=== PATIENT | female | born 1955 | race Hispanic/Latino ===

== ENCOUNTER 2018-02-27 05:14 | Emergency (ER) | payer BC ==
[2018-02-27] MEDS ORDERED: NA CHLORIDE 0.9% 1,000 ML ONE (06:40)
[2018-02-27] MEDS ORDERED: ONDANSETRON 4 MG/2 ML VIAL ONE (06:40)
[2018-02-27 06:57] LABS: Absolute Lymphocytes (CBC) 0.5 K/uL (0.7-4.9); Absolute Monocytes 0.5 K/uL (0.1-1.3); Absolute Neutrophil 4.2 K/uL (1.8-8.0); Basophils % 0.3 % (0-1.3); Eosinophils % 0.2 % (0-4.4); Hematocrit 44.5 % (36.0-45.0); Lymphocytes % 10.2 % (15.3-44.8); MCH 32.5 pg (27.0-35.0); MPV 7.9 fL (7.6-11.3); Monocytes % 9.9 % (3.3-12.3); RBC Red Blood Cell Count 4.69 M/uL (3.86-4.86)
[2018-02-27 07:06] LABS: Bicarbonate 23 mEq/L (21-31); Glucose Level 128 mg/dL (65-120); Lipase 26 U/L (22-51); Potassium 3.2 mEq/L (3.6-5.0); Sodium Level 136 mEq/L (135-145)
[2018-02-27 07:13] LABS: ALT/SGPT 24 IU/L (10-60); AST/SGOT 28 IU/L (10-42); Albumin 4.3 g/dL (3.2-5.5); Alkaline Phosphatase 71 IU/L (42-121); Amylase Level 43 U/L (28-100); BUN Blood Urea Nitrogen 13 mg/dL (6-20); Bilirubin Direct < 0.1 mg/dL (0-0.2); Bilirubin Total 0.6 mg/dL (0.3-1.2); Protein, Total 6.8 g/dL (6.0-8.3)
[2018-02-27] MEDS ORDERED: POTASSIUM CL SA 10 MEQ TAB PO ONE ×2 (07:55→07:56)
[2018-02-27 07:56] LABS: Urine Blood TRACE (NEG); Urine Glucose NEGATIVE (NEG); Urine Protein NEGATIVE (NEG)
[2018-02-27 07:57] LABS: Urine Bacteria <20 /HPF (<20); Urine RBC <5 /HPF (NONE SEEN)
[2018-02-27 07:58] LABS: Urine Culture Reflex Order REFLEXED
[2018-02-27 07:59] LABS: Thyroid Stimulating Hormone 3.04 uIU/mL (0.34-5.60)
--- NOTE | 2018-02-27 08:22 | ER ---
Nurse's Notes [facility] Name: Nell Rucker Age: 62 yrs Sex: Female : 1955 Arrival Date: 02/27/2018 Time: 05:18 Bed 8 Private MD: Diagnosis: Gastroenteritis;Persistent atrial fibrillation Presentation: 02/27 05:18 Presenting complaint: Patient states: She started having diarrhea Monday that ea resolved Monday night, patient reports she started having another episode of diarrhea last night and took Imodium, pt reports she took the dose limit of Imodium at 4 am and is still having diarrhea and abdominal pain. Transition of care: patient was not received from another setting of care. Onset of symptoms was February 27, 2018. Care prior to arrival: Medication(s) given: Imodium at 4 pm. 05:18 Method Of Arrival: Ambulatory ea 05:18 Acuity: GREG 3 ea Triage Assessment: 05:39 General: Appears uncomfortable, Behavior is calm, cooperative, appropriate for age. ea Pain: Complains of pain in abdomen Pain does not radiate. Pain currently is 9 out of 10 on a pain scale. Quality of pain is described as aching, crampy, Pain began 2-3 days ago. EENT: No signs and/or symptoms were reported regarding the EENT system. Neuro: Level of Consciousness is awake, alert, obeys commands, Oriented to person, place, time, situation. Cardiovascular: Patient's skin is warm and dry. Respiratory: Airway is patent Respiratory effort is even, unlabored, Respiratory pattern is regular, symmetrical. GI: Abdomen is non-distended, Bowel sounds present X 4 quads. Reports lower abdominal pain, upper abdominal pain, diarrhea, intolerance of food, nausea, vomiting, dark stool. : No signs and/or symptoms were reported regarding the genitourinary system. Derm: Skin is pink, warm \T\ dry. 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 - Social history:: Smoking status: Patient/guardian denies using tobacco. Screenin:43 Abuse screen: Denies threats or abuse. Nutritional screening: No deficits noted. ea Tuberculosis screening: No symptoms or risk factors identified. Fall Risk None identified. Assessment: 05:47 Reassessment: see triage assessment. ea 06:49 Reassessment: Patient and/or family updated on plan of care and expected duration. Pain ea level reassessed. Patient is alert, oriented x 3, equal unlabored respirations, skin warm/dry/pink. 07:20 Reassessment: Patient appears in no apparent distress at this time. Patient and/or sv family updated on plan of care and expected duration. Pain level reassessed. Patient is alert, oriented x 3, equal unlabored respirations, skin warm/dry/pink. Patient states feeling better. Patient states symptoms have improved. Vital Signs: 05:18 BP 149 / 84; Pulse 98; Resp 18; Temp 98.1(O); Pulse Ox 97% on R/A; Weight 75.75 kg; ea Height 5 ft. 6 in. (167.64 cm); Pain 7/10; 06:49 BP 153 / 86; Pulse 78; Resp 18 S; Pulse Ox 98% ; ea 07:20 BP 143 / 70; Pulse 96; Resp 18; Pulse Ox 97% ; sv 08:06 BP 116 / 58; Pulse 86; Resp 18; Pulse Ox 97% ; sv 05:18 Body Mass Index 26.95 (75.75 kg, 167.64 cm) ea ED Course: 05:18 Patient arrived in ED. ds1 05:20 Arm band placed on right wrist. ea 05:20 Patient has correct armband on for positive identification. Bed in low position. Call ea light in reach. Side rails up X 1. 05:24 Dusty Hanna MD is Attending Physician. tw4 05:29 Jessica Badillo RN is Primary Nurse. ea 05:35 Triage completed. ea 06:12 Dequan Goetz PA is PHCP. jr8 06:12 Dusty Hanna MD is Attending Physician. jr8 06:46 Inserted saline lock: 20 gauge in right antecubital area, using aseptic technique. ak1 Blood collected. 07:02 Primary Nurse role handed off by Jessica Badillo RN sv 07:02 Carol Dale RN is Primary Nurse. sv 07:25 Attending Physician role handed off by Dusty Hanna MD jr8 07:25 Kb Rangel MD is Attending Physician. jr8 07:58 T4 Free Sent. sv 07:58 TSH Sent. sv 08:21 Cameron Esquivel MD is Referral Physician. jr8 Administered Medications: 06:47 Drug: NS 0.9% 1000 ml Route: IV; Rate: 1000 ml; Site: right antecubital; ea 07:50 Follow up: Response: No adverse reaction; IV Status: Completed infusion; IV Intake: sv 1000ml 06:47 Drug: Zofran 4 mg Route: IVP; Site: right antecubital; ea 07:15 Follow up: Response: No adverse reaction; Marked relief of symptoms; Nausea is decreasedsv 08:13 Drug: Potassium Chloride 40 mEq Route: PO; sv Intake: 07:50 IV: 1000ml; Total: 1000ml. sv Outcome: 08:22 Discharge ordered by . jr8 08:47 Patient left the ED. sv Signatures: Carol Dale RN RN sv Sanford, Demi ds1 Dequan Goetz PA PA jr8 Tia Gore RN RN ak1 Antunez, Elena RN Dusty Kaur ea, MD MD tw4 Corrections: (The following items were deleted from the chart) 05:45 05:39 GI: Abdomen is non-distended, Bowel sounds present X 4 quads. mikaela al
--- NOTE | 2018-02-27 08:22 | EDPHYS ---
Physician Documentation [facility] Name: Nell Rucker Age: 62 yrs Sex: Female : 1955 Arrival Date: 02/27/2018 Time: 05:18 Bed 8 Private MD: ED Physician Kb Rangel HPI: 02/27 07:10 This 62 yrs old Female presents to ER via Ambulatory with complaints of jr8 Diarrhea, Abdominal Pain. 07:10 The patient presents to the emergency department with nausea, vomiting, diarrhea, jr8 abdominal pain. Onset: The symptoms/episode began/occurred acutely, 4 day(s) ago. Possible causes: unknown. The symptoms are aggravated by nothing. The symptoms are alleviated by nothing. Associated signs and symptoms: The patient has no apparent associated signs or symptoms. Severity of symptoms: At their worst the symptoms were moderate in the emergency department the symptoms are unchanged. The patient has not experienced similar symptoms in the past. The patient has not recently seen a physician. Stated that she has had n/v/d since Monday. Thought it was clearing up but started again yesterday. Feels weak, dizzy, fatigued. Decreased urine output . 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 - Social history:: Smoking status: Patient/guardian denies using tobacco. ROS: 07:10 Eyes: Negative for injury, pain, redness, and discharge, ENT: Negative for injury, jr8 pain, and discharge, Neck: Negative for injury, pain, and swelling, Cardiovascular: Negative for chest pain, palpitations, and edema, Respiratory: Negative for shortness of breath, cough, wheezing, and pleuritic chest pain, Back: Negative for injury and pain, MS/Extremity: Negative for injury and deformity, Skin: Negative for injury, rash, and discoloration, Neuro: Negative for headache, weakness, numbness, tingling, and seizure. 07:10 Abdomen/GI: Positive for nausea, vomiting, and diarrhea, abdominal cramps, Negative for abdominal distension, anorexia, dysphagia, hematemesis, black/tarry stool, rectal pain, rectal bleeding, bowel incontinence, flatulence. Exam: 07:10 Eyes: Pupils equal round and reactive to light, extra-ocular motions intact. Lids and jr8 lashes normal. Conjunctiva and sclera are non-icteric and not injected. Cornea within normal limits. Periorbital areas with no swelling, redness, or edema. ENT: Nares patent. No nasal discharge, no septal abnormalities noted. Tympanic membranes are normal and external auditory canals are clear. Oropharynx with no redness, swelling, or masses, exudates, or evidence of obstruction, uvula midline. Mucous membranes moist. Neck: Trachea midline, no thyromegaly or masses palpated, and no cervical lymphadenopathy. Supple, full range of motion without nuchal rigidity, or vertebral point tenderness. No Meningismus. Respiratory: Lungs have equal breath sounds bilaterally, clear to auscultation and percussion. No rales, rhonchi or wheezes noted. No increased work of breathing, no retractions or nasal flaring. Abdomen/GI: Soft, non-tender, with normal bowel sounds. No distension or tympany. No guarding or rebound. No evidence of tenderness throughout. Back: No spinal tenderness. No costovertebral tenderness. Full range of motion. Skin: Warm, dry with normal turgor. Normal color with no rashes, no lesions, and no evidence of cellulitis. MS/ Extremity: Pulses equal, no cyanosis. Neurovascular intact. Full, normal range of motion. Neuro: Awake and alert, GCS 15, oriented to person, place, time, and situation. Cranial nerves II-XII grossly intact. Motor strength 5/5 in all extremities. Sensory grossly intact. Cerebellar exam normal. Normal gait. 07:10 Cardiovascular: Rate: tachycardic, Rhythm: irregularly irregular, Pulses: Pulses are 2+ in right radial artery and left radial artery. Heart sounds: normal, normal S1and S2, no S3 or S4, no murmur, no rub, no gallop, Edema: is not appreciated, JVD: is not appreciated. Vital Signs: 05:18 BP 149 / 84; Pulse 98; Resp 18; Temp 98.1(O); Pulse Ox 97% on R/A; Weight 75.75 kg; ea Height 5 ft. 6 in. (167.64 cm); Pain 7/10; 06:49 BP 153 / 86; Pulse 78; Resp 18 S; Pulse Ox 98% ; ea 07:20 BP 143 / 70; Pulse 96; Resp 18; Pulse Ox 97% ; sv 08:06 BP 116 / 58; Pulse 86; Resp 18; Pulse Ox 97% ; sv 05:18 Body Mass Index 26.95 (75.75 kg, 167.64 cm) ea MDM: 05:24 Patient medically screened. tw4 08:19 Data reviewed: vital signs, nurses notes, lab test result(s), EKG, and as a result, I belgica will discharge patient. Data interpreted: Pulse oximetry: on room air is 97 %. Interpretation: normal. Counseling: I had a detailed discussion with the patient and/or guardian regarding: the historical points, exam findings, and any diagnostic results supporting the discharge/admit diagnosis, lab results, the need for outpatient follow up, a desktop publishing specialist, a family practitioner, to return to the emergency department if symptoms worsen or persist or if there are any questions or concerns that arise at home. ED course: Discussed with patient the finding of atrial fibrillation. Patient new she had been having irregular pulse for past couple of weeks. Had brought it to attention of software engineering analyst who referred to cardiology but has not been able to get in yet. Will start on anti-platelet therapy. CHAD2 VS score shows low risk of thromboembolism. Recommends anti-platelet therapy. Cardiology f/u to determine if need of true blood thinner. Patient good with this and will f/u. . 02/27 06:10 Order name: Amylase, Serum; Complete Time: 07:16 tw4 02/27 06:10 Order name: Basic Metabolic Panel; Complete Time: 07:16 02/27 06:10 Order name: CBC with Diff; Complete Time: 07:08 02/27 06:10 Order name: Creatinine for Radiology; Complete Time: 07:08 tw4 02/27 06:10 Order name: Hepatic Function; Complete Time: 07:16 tw4 02/27 06:10 Order name: Lipase; Complete Time: 07:16 tw02/27 06:10 Order name: Urine Microscopic Only; Complete Time: 08:23 tw4 02/27 06:41 Order name: TSH jr8 02/27 06:41 Order name: T4 Free jr8 02/27 06:42 Order name: Thyroid Stimulating Hormone; Complete Time: 08:23 EDMS 02/27 06:42 Order name: T4 Free; Complete Time: 08:23 EDMS 02/27 07:42 Order name: Urine Dipstick--Ancillary (enter results); Complete Time: 08:23 ag 02/27 07:59 Order name: Urine Culture EDGA 02/27 06:10 Order name: IV Saline Lock; Complete Time: 06:47 tw4 02/27 06:10 Order name: Labs collected and sent; Complete Time: 06:47 tw4 02/27 06:10 Order name: Urine Dipstick-Ancillary (obtain specimen); Complete Time: 07:58 tw4 02/27 06:39 Order name: EKG - Nurse/Tech; Complete Time: 06:52 jr8 02/27 06:39 Order name: EKG; Complete Time: 06:39 jr8 Administered Medications: 06:47 Drug: NS 0.9% 1000 ml Route: IV; Rate: 1000 ml; Site: right antecubital; ea 07:50 Follow up: Response: No adverse reaction; IV Status: Completed infusion; IV Intake: sv 1000ml 06:47 Drug: Zofran 4 mg Route: IVP; Site: right antecubital; ea 07:15 Follow up: Response: No adverse reaction; Marked relief of symptoms; Nausea is decreasedsv 08:13 Drug: Potassium Chloride 40 mEq Route: PO; sv Disposition: 11:31 Co-signature as Attending Physician, Kb Rangel MD I agree with the assessment and rn plan of care. Disposition: 02/27/18 08:22 Discharged to Home. Impression: Gastroenteritis, Persistent atrial fibrillation. - Condition is Stable. - Discharge Instructions: Atrial Fibrillation, Electrical Cardioversion, Pharmaceutical Cardioversion, Viral Gastroenteritis. - Prescriptions for Bentyl 20 mg Oral Tablet - take 1 tablet by ORAL route every 6 hours As needed; 20 tablet. Zofran 4 mg Oral Tablet - take 1 tablet by ORAL route every 12 hours As needed; 20 tablet. - Medication Reconciliation Form, Thank You Letter, Antibiotic Education, Prescription Opioid Use form. - Follow up: Cameron Esquivel MD; When: 2 - 3 days; Reason: Recheck today's complaints, Continuance of care, Re-evaluation by your physician. - Problem is new. - Symptoms have improved. - Notes: To start 81mg Aspirin once a day Signatures: Dispatcher [employer] Carol Harris, Kb Robertson RN, MD MD rn Roszak, Josh, PA PA jr8 Jessica Badillo, Dusty Kaur RN, ea, MD MD tw4
--- NOTE | 2018-02-27 10:20 | EKG ---
Test Date: 2018-02-27 Test Time: 06:47:02 Pie Cutter: OLAF MEASUREMENT RESULTS: Intervals: Rate: 144 MI: QRSD: 66 QT: 288 QTc: 445 Henderson: P: MI: QRS: 48 T: 50 INTERPRETIVE STATEMENTS: Atrial fibrillation with rapid ventricular response with premature ventricular or aberrantly conducted complexes Nonspecific ST and T wave abnormality Abnormal ECG No previous ECG available for comparison Electronically Signed On 02-27-18 10:19:07 CDT by Scott Gonsalez
== END 2018-02-27 08:47 | disposition home or self-care (01) ==
LOC: ER 05:14
DX: K52.9 Noninfective gastroenteritis and colitis, unspecified (principal); I48.1 Persistent atrial fibrillation
CPT/HCPCS: 36415; 80048; 80076; 81003; 81015; 82150; 83690; 84439; 84443; 85025; 87086; 87088; 93005; 96361; 96374; 99283; J2405; J7030